=== PATIENT | female | born 1995 | race Caucasian/White ===

== ENCOUNTER 2016-10-02 02:52 | Emergency (ER) | payer OTHER ==
[~2016-10-02] VITALS: Ht 167.6 cm; Wt 66.0 kg
[2016-10-02 02:59] VITALS: TEMP 36.8; Ht 167.6 cm; Wt 66.0 kg
--- NOTE | 2016-10-02 03:14 | EMERGENCY ROOM VISIT NOTE ---
History Report prepared by Kellee: Art Myers Under the Supervision of: Dr. Jhonatan Christian M.D. First contact with patient: 03:03 Chief Complaint: LACERATION/CUT (SUT/DERMABOND) Stated Complaint: LAC History of Present Illness The patient is a 21 year old female who presents to the Emergency Room with complaints of a laceration on her left thumb. Prior to arrival, the patient was cutting frozen turkey gould with a large knife. She accidently cut her finger. She notes to have been drinking some alcohol this evening. She takes control, Lexapro, and Adderall. She denies any bleeding disorder. She did not take anything for pain. Source of History: patient Onset: Prior to arrival Position: other (Left thumb) Symptom Intensity: moderate Quality: other (Laceration) Timing: constant Note: She denies any other symptoms. Review of Systems See HPI for pertinent positives & negatives. A total of 6 systems reviewed and were otherwise negative. Past Medical & Surgical Medical Problems: (1) Acute depression (2) Anxiety Family History FHx: cancer Social History Smoking Status: Never Smoker Smokeless Tobacco Use: No Alcohol Use: occasionally Drug Use: none Marital Status: single Housing Status: lives with roommate Occupation Status: [employer] student Current/Historical Medications Scheduled Amphetamine-Dextroamphetamine 30MG (Adderall Xr 30MG), 30 MG PO DAILY Control Pills ( Control Pills), 1 TAB PO DAILY Cephalexin Monohydrate (Keflex), 500 MG PO TID Escitalopram (Lexapro), 10 MG PO DAILY Scheduled PRN Amphetamine-Dextroamphetamine 10MG (Adderall 10MG), 10 MG PO DAILY PRN for adhd Allergies Coded Allergies: No Known Allergies (Unverified , 10/02/16) Physical Exam Vital Signs Date Time Temp Pulse Resp B/P (MAP) Pulse Ox O2 Delivery O2 Flow Rate FiO2 10/02/16 04:07 78 16 149/100 98 10/02/16 02:59 36.8 109 18 159/106 98 Room Air Physical Exam GENERAL: Patient is well appearing and in no acute distress. HEENT: No acute trauma, normocephalic atraumatic, mucous membranes moist, no nasal congestion, no scleral icterus. NECK: No stridor, no adenopathy, no meningismus, trachea is midline. EXTREMITIES: Normal motion all extremities, no cyanosis, no edema. 2.5 cm laceration over the lateral aspect of the dorsal aspect of the left 1st MCP. Full ROM with good strength of the thumb. NV intact. No active bleeding. NEUROLOGIC: Alert and oriented, no acute motor or sensory deficits, no focal weakness, cranial nerves grossly intact. SKIN: No rash, no jaundice, no diaphoresis. Medical Decision & Procedures ER Provider Diagnostic Interpretation: Radiology results and stated below per my review and radiologist interpretation: 2 VIEW LEFT THUMB No fracture, dislocation, or foreign body. Per me Medications Administered Medications (Trade) Dose Ordered Sig/Faina Route Start Time Stop Time Status Last Admin Dose Admin Cephalexin Monohydrate (Keflex Cap) 500 mg NOW ONCE PO 10/02/16 04:00 10/02/16 04:01 DC 10/02/16 04:07 500 MG ED Course 0303: The patient was evaluated in room B6. A complete history and physical exam was performed. 0315: Ordered Lidocaine HCl 20 ml INFIL 0330: Jah Mccormack PA-C performed a laceration repair procedure at this time. Please see his note. 0400: Ordered Keflex Cap 500 mg PO 0412: Reevaluated the patient. Discussed results and discharge instructions: She verbalized understanding and agreement. The patient is ready for discharge. Medical Decision Differential: Simple Laceration, Complex Laceration, Imbedded Foreign Body, Contamination/Infection Risk, Neurovascular Compromise, Tendon Injury, Compartment Syndrome, as well as Tetanus Status, amongst other pathologies entertained. Medication Reconcilliation Current Medication List: was personally reviewed by me Blood Pressure Screening Patient's blood pressure: Elevated blood pressure Blood pressure disposition: Elevated BP felt to be situational Impression Primary Impression: Laceration of hand, left Scribe Attestation The scribe's documentation has been prepared under my direction and personally reviewed by me in its entirety. I confirm that the note above accurately reflects all work, treatment, procedures, and medical decision making performed by me. Departure Information Dispostion Home / Self-Care Prescriptions Cephalexin Monohydrate (Keflex) 500 Mg Cap 500 MG PO TID for 7 Days, #21 CAP Prov: hJonatan Christian M.D. 10/02/16 Referrals No Doctor, Assigned (PCP) Forms HOME CARE DOCUMENTATION FORM, IMPORTANT VISIT INFORMATION Patient Instructions ED Laceration All, My [facility] Additional Instructions Please return or follow up with [facility] in 7 to 10 days for suture removal. There is a risk of infection and if swelling, drainage, spreading redness, fevers or other concerns return for further evaluation. Problem Qualifiers Primary Impression: Laceration of hand, left Encounter type: initial encounter Foreign body presence: without foreign body Qualified Codes: S61.412A - Laceration without foreign body of left hand , initial encounter
[2016-10-02] MEDS ORDERED: XYLOCAINE 1%/SOD BICARB 20 ML VIAL INFIL ONE (03:15)
[2016-10-02] MEDS ORDERED: AMPH10TA2 PO (03:18)
[2016-10-02] MEDS ORDERED: BCPILLS PO (03:18)
[2016-10-02] MEDS ORDERED: AMPH30CA3 PO (03:18)
[2016-10-02] MEDS ORDERED: ESCI10TA17 PO (03:18)
[2016-10-02] MEDS ORDERED: CEPH500C PO (04:00)
[2016-10-02] MEDS ORDERED: CEPHALEXIN MONOHYDRATE 250 MG CAP PO ONE (04:00)
[2016-10-02 04:07] VITALS: BP 149/100; PULSE 78; O2SAT 98
--- NOTE | 2016-10-02 04:08 | EMERGENCY ROOM VISIT NOTE ---
ED Visit Note Patient was seen and evaluated the request of my attending physician, Dr. Christian, for a left thumb laceration. Please see Dr. Christian's dictation for full history of present illness and Emergency Department course outside of this repair. On examination the patient has a 2.5 cm laceration to the posterior lateral left thumb just past the MCP joint. This laceration does gape and will require repair. Laceration repair. Patient elects to have their laceration repaired. Verbal consent was obtained to perform the procedure. There is an abundance of materials available for the procedure. Patient is not allergic to latex. Using sterile technique the wound was cleaned with Betadine. The area was sterilely draped. 2 ml of 1% buffered lidocaine was used to anesthetize the left thumb in a local block fashion. Once the patient was anesthetized, the wound was copiously irrigated under pressure with sterile saline. The wound was explored and there may be some minimal injury to the ED structures around the MCP joint. She does have full flexion and extension of the thumb against resistance. The laceration was repaired using 4 simple interrupted 5-0 nylon sutures with the wound edges being well approximated. Hemostasis was achieved. The area was cleaned with sterile saline and dressed with bacitracin ointment and bandage. Patient tolerated the procedure well without complications. Blood loss was negligible. Problem List Medical Problems: (1) Acute depression Status: Chronic (2) Anxiety Status: Chronic Current/Historical Medications Scheduled Amphetamine-Dextroamphetamine 30MG (Adderall Xr 30MG), 30 MG PO DAILY Control Pills ( Control Pills), 1 TAB PO DAILY Cephalexin Monohydrate (Keflex), 500 MG PO TID Escitalopram (Lexapro), 10 MG PO DAILY Scheduled PRN Amphetamine-Dextroamphetamine 10MG (Adderall 10MG), 10 MG PO DAILY PRN for adhd Allergies Coded Allergies: No Known Allergies (Unverified , 10/02/16) Vital Signs Date Time Temp Pulse Resp B/P (MAP) Pulse Ox O2 Delivery O2 Flow Rate FiO2 10/02/16 02:59 36.8 109 18 159/106 98 Room Air Departure Information Prescriptions Cephalexin Monohydrate (Keflex) 500 Mg Cap 500 MG PO TID for 7 Days, #21 CAP Prov: Jhonatan Christian M.D. 8/22/17 Referrals No Doctor, Assigned (PCP) Patient Instructions [facility]
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
== END 2016-10-02 04:10 | disposition home or self-care (01) ==
LOC: C.EDB 02:53
DX: S61.012A Laceration without foreign body of left thumb without damage to nail, initial encounter (principal); W26.0XXA Contact with knife, initial encounter; Y93.G1 Activity, food preparation and clean up; F32.9 Major depressive disorder, single episode, unspecified; F41.9 Anxiety disorder, unspecified; Z79.3 Long term (current) use of hormonal contraceptives; Z79.899 Other long term (current) drug therapy; Z80.9 Family history of malignant neoplasm, unspecified